=== PATIENT | female | born 1950 | race Hispanic/Latino ===

== ENCOUNTER → 2020-07-15 | Outpatient (CLI) | payer OTHER | END | disposition home or self-care (01) | LOC: RAH 10:05 | PROVIDERS: ATTEND Internal Medicine | DX: Z12.31 Encounter for screening mammogram for malignant neoplasm of breast (principal); N64.89 Other specified disorders of breast | CPT/HCPCS: 77067 ==

== ENCOUNTER → 2021-08-17 | Outpatient (CLI) | payer OTHER | END | disposition home or self-care (01) | LOC: RAH 14:05 | PROVIDERS: ATTEND Internal Medicine | DX: J32.0 Chronic maxillary sinusitis (principal); R93.89 Abnormal findings on diagnostic imaging of other specified body structures | CPT/HCPCS: 70486 ==

== ENCOUNTER 2022-04-11 20:44 | Emergency (ER) | payer OTHER ==
[~2022-04-11] VITALS: Ht 144.8 cm; Wt 64.4 kg
[2022-04-11 21:15] LABS: BASOPHILS % (AUTO) 0.9 % (0.0-5.0); HEMATOCRIT 33.3 % (36-48); LYMPHOCYTES % (AUTO) 50.8 % (21.0-51.0); MEAN CORPUSCULAR HEMOGLOBIN 29.9 pg (27.0-33.0); MEAN CORPUSCULAR HGB CONC 35.7 g/dL (32.0-36.0); MEAN CORPUSCULAR VOLUME 83.7 fL (79-99); MONOCYTES % (AUTO) 9.9 % (3.0-13.0); NEUTROPHILS % (AUTO) 35.2 % (40.0-77.0); PLATELET COUNT (AUTO) 278 K/uL (130-400); RED BLOOD CELL COUNT(AUTO) 3.98 MIL/uL (4.00-5.50); RED CELL DISTRIBUTION WIDTH 13.6 % (11.0-15.5); WHITE BLOOD COUNT (AUTO) 4.3 K/uL (4.8-10.8)
[2022-04-11 21:25] LABS: CREATININE 0.8 mg/dL (0.5-1.5); POTASSIUM 4.2 mmol/L (3.5-5.1)
[2022-04-11] MEDS ORDERED: 0.9%NACL 1000ML 1,000 ML IV ONE (21:30)
[2022-04-11 21:32] LABS: ALBUMIN 4.3 g/dL (3.5-5.0); TOTAL PROTEIN, SERUM 7.8 g/dL (6.0-8.3)
[2022-04-11 22:57] LABS: APPEARANCE,URINE CLEAR (CLEAR); BILIRUBIN,URINE NEGATIVE (NEGATIVE); COLOR,URINE YELLOW (YELLOW); GLUCOSE, URINE (UA) NEGATIVE (NEGATIVE); KETONES,URINE NEGATIVE (NEGATIVE); LEUKOCYTE ESTERASE ,URINE NEGATIVE (NEGATIVE); NITRATE,URINE NEGATIVE (NEGATIVE); OCCULT BLOOD,URINE NEGATIVE (NEGATIVE); PROTEIN,URINE NEGATIVE (NEGATIVE); UROBILINOGEN,URINE 0.2 mg/dL (0.2-1.0)
[2022-04-11 23:31] VITALS: BP 150/74
== END 2022-04-11 23:39 | disposition home or self-care (01) ==
LOC: EDH 20:44
DX: E86.0 Dehydration (principal); R53.1 Weakness; E11.9 Type 2 diabetes mellitus without complications; E78.00 Pure hypercholesterolemia, unspecified; Z98.890 Other specified postprocedural states
CPT/HCPCS: 99284; 96360; 96361; 84484; 80053; 83690; 85025; 81003; 36415; 93005; J7030

== ENCOUNTER → 2022-05-09 | Outpatient (CLI) | payer OTHER | END | disposition home or self-care (01) | LOC: RAH 07:07 | PROVIDERS: ATTEND Internal Medicine Gastroenterology | DX: R11.2 Nausea with vomiting, unspecified (principal); R68.81 Early satiety | CPT/HCPCS: 78264; A9541 ==

== ENCOUNTER → 2023-04-15 | Outpatient (CLI) | payer OTHER | END | disposition home or self-care (01) | LOC: RAH 10:30 | PROVIDERS: ATTEND Internal Medicine | DX: E04.2 Nontoxic multinodular goiter (principal); R22.1 Localized swelling, mass and lump, neck | CPT/HCPCS: 76536 ==

== ENCOUNTER → 2023-05-27 | Outpatient (CLI) | payer OTHER ==
[~2023-05-27] MED LIST: IOHEXOL 350 MG/ML 100ML INFUS..BTL IV ONE; IOHEXOL-350 50ML VIAL IV ONE; IOHEXOL-350 75 ML VIAL IV ONE
== END | disposition home or self-care (01) ==
LOC: RAH 10:45
PROVIDERS: ATTEND Internal Medicine
DX: D49.9 Neoplasm of unspecified behavior of unspecified site (principal); R89.7 Abnormal histological findings in specimens from other organs, systems and tissues
CPT/HCPCS: 70492; Q9967 ×2

== ENCOUNTER 2023-06-27 06:52 | Day surgery (SDC) | payer OTHER ==
[2023-06-26 11:39] LABS: BASOPHILS # (AUTO) 0.06 K/uL (0.00-0.20); BASOPHILS % (AUTO) 1.1 % (0.0-5.0); EOSINOPHILS # (AUTO) 0.17 K/uL (0.00-0.70); EOSINOPHILS % (AUTO) 3.2 % (0.0-8.0); HEMATOCRIT 33.1 % (36-48); IMMATURE GRANULOCYTE ABSOLUTE 0.01 K/uL (0-1); MEAN CORPUSCULAR HEMOGLOBIN 30.2 pg (27.0-33.0); MEAN CORPUSCULAR HGB CONC 34.1 g/dL (32.0-36.0); MEAN CORPUSCULAR VOLUME 88.5 fL (79-99); MONOCYTES # (AUTO) 0.4 K/uL (0.1-1.0); MONOCYTES % (AUTO) 8.1 % (3.0-13.0); NEUTROPHILS # (AUTO) 1.7 K/uL (1.8-7.7); NEUTROPHILS % (AUTO) 31.4 % (40.0-77.0); PLATELET COUNT (AUTO) 223 K/uL (130-400); RED BLOOD CELL COUNT(AUTO) 3.74 MIL/uL (4.00-5.50); RED CELL DISTRIBUTION WIDTH 13.6 % (11.0-15.5); WHITE BLOOD COUNT (AUTO) 5.3 K/uL (4.8-10.8)
[2023-06-26 11:44] LABS: CREATININE 0.6 mg/dL (0.5-1.5); POTASSIUM 3.7 mmol/L (3.5-5.1)
[2023-06-26 11:46] LABS: INR 0.96 (0.85-1.15); PROTHROMBIN TIME 11.2 SEC (9.6-11.6)
[2023-06-26 11:47] LABS: PARTIAL THROMBOPLASTIN TIME 36.5 SEC (26.3-35.5)
[2023-06-26 12:31] VITALS: BP 166/68; PULSE 57; RESP 19
[~2023-06-27] VITALS: Ht 144.8 cm; Wt 55.0 kg
[2023-06-27] VITALS (17 sets, daily range): BP systolic 109–149; BP diastolic 48–79; PULSE 63–77; RESP 11–18
[~2023-06-27 06:52] MED LIST changes: +AEC81 PO; +CLOT15CR5 TP; +COSO10OS OU; +FOLI-114 PO; +GLIP2.5T2 PO; +GLIP5TAB15 PO; -IOHEXOL 350 MG/ML 100ML INFUS..BTL IV ONE; -IOHEXOL-350 50ML VIAL IV ONE; -IOHEXOL-350 75 ML VIAL IV ONE; +LATA2.5D14 OU; +LEVO25CA4 PO; +METF-446 PO; +ROSU20TA73 PO; +fish oil PO; +super b complex PO
[2023-06-27] MEDS ORDERED: PHENYLEPHRINE HCL 10 MG/ML 1ML VIAL IV ONE (07:25)
[2023-06-27] MEDS ORDERED: 0.9%NACL 1000ML 1,000 ML IV ONE (07:39)
[2023-06-27] MEDS ORDERED: LIDOCAINE 2%-EPI 1:200,000 20 ML VIAL IJ ONE ×2 (07:55→09:00)
[2023-06-27] MEDS ORDERED: MIDAZOLAM HCL 1 MG/ML 2ML VIAL ONE (08:20)
[2023-06-27] MEDS ORDERED: LIDOCAINE PF 100MG/5ML (2%) SYRINGE 5ML ONE (08:20)
[2023-06-27] MEDS ORDERED: PROPOFOL 10 MG/ML 20ML VIAL IV ONE (08:20)
[2023-06-27] MEDS ORDERED: KETAMINE 50MG/ML SYRINGE 50 MG/ML DISP.SYRIN ONE (08:21)
[2023-06-27] MEDS ORDERED: HYDROCORTISONE SOD SUCCINATE 100 MG/2 ML VIAL ONE (08:33)
[2023-06-27] MEDS ORDERED: SUCCINYLCHOLINE CHLORIDE 20 MG/ML 10 ML VIAL ONE (08:36)
[2023-06-27] MEDS ORDERED: ROCURONIUM 10MG/1ML SYR 10 MG/ML ML ONE (08:36)
[2023-06-27] MEDS ORDERED: FENTANYL CITRATE PF 50 MCG/1 ML 2ML VIAL ONE (08:56)
[2023-06-27] MEDS ORDERED: BACITRACIN 3.5 GM TUBE OP ONE (09:00)
[2023-06-27] MEDS ORDERED: ZINC50TA15 PO (09:27)
[2023-06-27] MEDS ORDERED: ACET-2743 PO (09:27)
[2023-06-27] MEDS ORDERED: CHOL100046 PO (09:27)
[2023-06-27] MEDS ORDERED: ASCO250T22 PO (09:27)
[2023-06-27] MEDS ORDERED: BACITRACIN 28.4 GM OINT TP ONE (09:54)
[2023-06-27] MEDS ORDERED: ONDANSETRON 4MG INJ ONE (09:56)
[2023-06-27] MEDS ORDERED: GLYCOPYRROLATE 1 MG/5 ML SYRINGE ONE (10:07)
[2023-06-27] MEDS ORDERED: NEOSTIGMINE 5MG/5ML SYR IV ONE (10:07)
[2023-06-27] MEDS ORDERED: SUGAMMADEX SODIUM 200 MG/2 ML VIAL IV ONE (10:22)
== END 2023-06-27 12:10 | disposition home or self-care (01) ==
LOC: DAH 06:52
PROVIDERS: ATTEND Otolaryngology Plastic Surgery within the Head & Neck
DX: K11.8 Other diseases of salivary glands (principal); D11.7 Benign neoplasm of other major salivary glands; E11.39 Type 2 diabetes mellitus with other diabetic ophthalmic complication; H42 Glaucoma in diseases classified elsewhere; E78.5 Hyperlipidemia, unspecified; Z98.890 Other specified postprocedural states; Z79.899 Other long term (current) drug therapy; Z79.01 Long term (current) use of anticoagulants
CPT/HCPCS: 42440; 80048; 85025; 85610; 85730; 36415; 93005; 82948 ×2; 88307; A6260; A4663; A4606; A4452; C1729; J3010; J3490 ×4; J2710; J0330; J7030; J1720; J2001; J2250; J2704; J2405; J2371; A4649; A4215; A4223; A4222; A4221

== ENCOUNTER → 2023-11-21 | Outpatient (CLI) | payer OTHER ==
[~2023-11-21] MED LIST changes: +ACET-2743 PO; +ASCO250T22 PO; +CHOL100046 PO; -GLIP5TAB15 PO; +ZINC50TA15 PO
== END | disposition home or self-care (01) ==
LOC: RAH 09:24
PROVIDERS: ATTEND Family Medicine
DX: Z12.31 Encounter for screening mammogram for malignant neoplasm of breast (principal)
CPT/HCPCS: 77067